=== PATIENT | female | born 1950 | race Caucasian/White ===

== ENCOUNTER 2020-06-22 13:57 | Outpatient (CLI) | payer MEDICARE, OTHER, SELFPAY ==
--- NOTE | 2020-06-22 14:15 | USCV_ITS ---
Maryuri Pearl Age: 69 Gender: F : 1950 Exam Date: 06/22/2020 14:56 Ordering Phys: Sabi Page MD ([email or web address]) Technologist: Hayder Vidal [place] [facility] [place]: POOR PULSES Risk Factors: None Previous Vascular Surgery: None RIGHT LEFT BP: 130.0 / 70.00 BP: 130.0/ 70.00 0 0 Waveform Velocity (cm/s) Velocity (cm/s) Waveform Biphasic 114.8 Iliac Prox 104.9 Biphasic Biphasic 122.2 Iliac Mid 117.3 Biphasic Biphasic 104.9 Iliac Distal 72.8 Biphasic Biphasic 104.9 ROOFING TILE SORTER 90.1 Biphasic Biphasic 104.9 SFA Prox 107.4 Biphasic Biphasic SFA Mid Biphasic 76.5 101.2 Biphasic 67.9 SFA Dist 104.9 Biphasic Biphasic 70.4 POP 69.1 Biphasic Biphasic 135.8 BEHAVIORAL HEALTH CLINICIAN 19.8 Monophasic Monophasic 65.0 DPA 90.1 Biphasic 1.1 MONICA 1.1 FINDINGS Normal resting ABIs bilaterally Intimal thickening and minimal plaques in the superficial femoral artery on bilaterally Normal resting ABIs bilaterally CONCLUSIONS No significant arterial obstruction in both lower extremities, based on the above findings Dr Sabi Page MD [facility] (Electronically Signed) Final Date: 22 June 2020 16:11 S
--- NOTE | 2020-06-22 14:17 | USCV_ITS ---
Maryuri Pearl Age: 69 Gender: F : 1950 Exam Date: 06/22/2020 14:43 Ordering Phys: Sabi Page MD ([email or web address]) Technologist: Hayder Vidal [place] [facility] [facility] [place]ication: SOB BP: 126 / 71 HR: 40 Rhythm: Sinus Technical Quality: Good MEASUREMENTS (Male / Female) Normal Values 2D ECHO LV Diastolic Diameter PLAX 3.4 cm 4.2 - 5.9 / 3.9 - 5.3 cm LV Systolic Diameter PLAX 2.4 cm IVS Diastolic Thickness 1.1 cm 0.6 - 1.0 / 0.6 - 0.9 cm IVS Systolic Thickness 1.2 cm LVPW Diastolic Thickness 0.9 cm 0.6 - 1.0 / 0.6 - 0.9 cm LVPW Systolic Thickness 1.3 cm LVOT Diameter 2.1 cm LV Ejection Fraction 2D Teich 57.3 % LV Ejection Fraction MOD 2C 78.2 % LV Ejection Fraction 2C AL 78.2 % LA Diameter 3.2 cm LA Width 2.9 cm LA Height 4.8 cm RA Width 3.6 cm RA Height 4.4 cm Aorta at Sinotubular Diameter 0.8 cm M-MODE LV Diastolic Diameter MM 4.4 cm 4.2 - 5.9 / 3.9 - 5.3 cm LV Systolic Diameter MM 2.6 cm LV Ejection Fraction MM Teich 71.6 % IVS Diastolic Thickness MM 0.8 cm 0.6 - 1.0 / 0.6 - 0.9 cm IVS Systolic Thickness MM 1.3 cm LVPW Diastolic Thickness MM 0.9 cm 0.6 - 1.0 / 0.6 - 0.9 cm LVPW Systolic Thickness MM 1.6 cm RV Diastolic Diameter MM 1.2 cm Aortic Annulus Diameter 3.1 cm LA Ao Ratio MM 1.1 MV E Point Septal Separation 0.8 cm DOPPLER AV Peak Velocity 173.0 cm/s LVOT Peak Velocity 89.0 cm/s AV Area Cont Eq vti 1.7 cm squared AV Area Cont Eq pk 1.7 cm squared MV Area PHT 2.8 cm squared Mitral E to A Ratio 0.8 MV E' Velocity 37.0 cm/s Mitral E to MV E' Ratio 6.9 Mitral E to LV E' Lateral Ratio 6.5 Mitral E to LV E' Septal Ratio 7.4 TR Peak Velocity 273.3 cm/s TR Peak Gradient 29.9 mmHg TV Peak E Velocity 78.0 cm/s Right Atrial Pressure 3.0 mmHg Pulmonary Artery Systolic Pressu 32.9 mmHg PV Peak Velocity 119.0 cm/s FINDINGS Left Ventricle Normal LV size with normal ejection fraction of 55%. Tethering motion of the septum possibly related to the conduction abnormality.Grade I/IV diastolic dysfunction (abnormal relaxation filling pattern), normal to mildly elevated filling pressures. Right Ventricle Normal right ventricular size and systolic function. Right Atrium The right atrium is normal in size. Left Atrium The left atrium is normal in size. Mitral Valve Thickened mitral valve. Trace mitral valve regurgitation. Aortic Valve Thickened aortic valve. Trace aortic valve regurgitation. Tricuspid Valve Mild tricuspid valve regurgitation. Estimated pulmonary artery peak systolic pressure 33 mmHg Pulmonic Valve Structurally normal pulmonic valve without significant stenosis. There is no pulmonic regurgitation. Pericardium Normal pericardium without effusion. Aorta Normal ascending aorta dimension. CONCLUSIONS Normal LV size with normal ejection fraction of 55%. Tethering motion of the septum possibly related to the conduction abnormality. Grade I/IV diastolic dysfunction (abnormal relaxation filling pattern), normal to mildly elevated filling pressures. Minimally thickened aortic and mitral valves. Trace of aortic and mitral regurgitation. Mild tricuspid valve regurgitation. There is no pericardial effusion. There are no intracardiac masses. Compared to the study from 03/26/2015, there may not be a significant change except for some evidence of diastolic dysfunction Dr Sabi Page MD [facility] (Electronically Signed) Final Date: 25 June 2020 08:55 S
== END 2020-06-22 13:58 | disposition home or self-care (01) ==
LOC: RAD 14:01
PROVIDERS: PCP Radiology Neuroradiology; Visit Provider Internal Medicine Cardiovascular Disease
DX: I44.1 Atrioventricular block, second degree (principal); I73.9 Peripheral vascular disease, unspecified; R06.02 Shortness of breath; I08.3 Combined rheumatic disorders of mitral, aortic and tricuspid valves
CPT/HCPCS: 93306; 93925

== ENCOUNTER → 2020-07-14 17:52 | Outpatient (BNVA) | payer MEDICARE, OTHER, SELFPAY | PROVIDERS: PCP Radiology Neuroradiology; Visit Provider Nurse Practitioner Family | DX: J02.9 Acute pharyngitis, unspecified (principal); Z20.828 Contact with and (suspected) exposure to other viral communicable diseases; Z11.59 Encounter for screening for other viral diseases; J30.9 Allergic rhinitis, unspecified; Z71.89 Other specified counseling | CPT/HCPCS: 87071; 87635; 87880 ==

== ENCOUNTER → 2021-04-24 12:59 | Outpatient (BNVA) | payer MEDICARE, OTHER, SELFPAY | PROVIDERS: PCP Family Medicine; Visit Provider Internal Medicine | DX: Z01.812 Encounter for preprocedural laboratory examination (principal); Z20.822 Contact with and (suspected) exposure to COVID-19 | CPT/HCPCS: 87635 ==

== ENCOUNTER 2021-05-10 08:53 | Day surgery (SDC) | payer MEDICARE, OTHER, SELFPAY ==
[2021-04-24 10:53] VITALS: BMI 41.0
--- NOTE | 2021-05-10 08:32 | P.ANESASSM_ITS ---
Pre-Anesthetic Assessment Pre-Anesthetic Assessment: Height/Weight: Height 1.52 m Weight 95.254 kg Proposed Procedure: Operation Date: 05/10/21 09:45 Proposed Procedures p EGD/colon 66057 A1911 47773 R19.14(Not Applicable) - Ayden Ann MD s Colonoscopy(Not Applicable) - Ayden Ann MD Was Beta Jose taken within 24 hours: N/A Was Clonidine taken within 24 hours: N/A Social: Social History: No alcohol and No tobacco Exam: Pre-Anes Outpt Exam: alert, oriented x 3, clear to auscultation bilaterally and regular rate & rhythm Airway: Submandibular: WNL Cervical ROM: WNL Pulmonary: Pulmonary: MARINO CV/HEM: CV/HEM: Arrythmia (Heart Block), HTN and PVD : Comments: Endometrial CA Hepatic: Hepatic: None reported GI: GI: None reported Metabolic: Metabolic: DM and Morbid obesity Neuropsych: Neuropsych: None reported Anesthetic Plan: ASA status: 3 Anesthesia: MAC PFSH Anesthesia PFSH: Medical History (Updated 01/21/21 @ 10:50 by Michael Ennis MD) Benign essential HTN Compression fracture of L1 lumbar vertebra (~03/2014) Diabetes mellitus MARINO (dyspnea on exertion) Endometrial cancer (~08/10/09) Stage IA, Grade 1, Endometrioid adenocarcinoma of the endometrium. Surgery performed on 08/10/2009 (cancer staging) No radiation or chemotherapy required. Obesity Peripheral vascular disease Second degree heart block Surgical History History of ankle surgery x3 (last one in 2011) History of breast biopsy (~1972) History of hysterectomy (08/10/09) Robotic Total laparoscopic hysterectomy with bilateral salpingo-oophorectomy and lymph node dissection. Diagnosis: Endometrial cancer. Performed by Dr. Trenton Cordero at [facility] in [place], [place]. History of hysteroscopy (07/31/09) Postmenopausal bleeding with endometrial polyp. Procedure performed by Dr. Michael Ennis at [facility] in [place], [place]. History of knee replacement (~10/09/14) Left Knee. Dr Jo in [place] at [facility]. Family History Grandmother Diabetes maternal Hypertension maternal Heart disease maternal Father Diabetes Mother Hypertension Thyroid disease Hypercholesteremia Heart disease Social History (Updated 01/23/21 @ 15:17 by Michael Ennis MD) Smoking and tobacco status: never smoked Alcohol intake: never Data Anesthesia Cardiac Studies: No Data to Display
--- NOTE | 2021-05-10 09:25 | P.HP_ITS ---
Same Day Surgery H&P Indication for Procedure/HPI DATE OF PROCEDURE: May 10, 2021 CHIEF COMPLAINT/INDICATIONFOR SURGICAL PROCEDURE: Screening PREOP DIAGNOSIS: Screen PLANNED PROCEDRUE: Operation Date: 05/10/21 09:45 Proposed Procedures p EGD/colon 19254 [id number] R19.14(Not Applicable) - Ayden Ann MD s Colonoscopy(Not Applicable) - Ayden Ann MD Medications/Allergies* Home Medications Medication Instructions Recorded Confirmed Type aspirin 81 mg tablet,delayed 81 mg PO DAILY 01/13/20 05/02/21 History release calcium lactate 650 mg tablet 648 mg PO DAILY tab 01/13/20 05/02/21 History cholecalciferol(vit D3) 1,000 1 tab PO DAILY tab 01/13/20 05/02/21 History unit-vit K2 90 mcg disintegrating tablet clopidogrel 75 mg tablet 75 mg PO DAILY 01/13/20 05/02/21 History hydrocodone 5 mg-acetaminophen 325 1 tab PO Q8H PRN 01/13/20 05/02/21 History mg tablet metformin 1,000 mg tablet 1,000 mg PO BID 01/13/20 05/02/21 History pregabalin 75 mg capsule 75 mg PO BID 01/13/20 05/02/21 History sennosides 8.6 mg tablet 8.6 mg PO BID PRN 01/13/20 05/02/21 History vit A 7,160 unit-vit C 113 mg-vit 1 tab PO BID tab 01/13/20 05/02/21 History E 100 osop-rwke-ybpfzt tablet benazepril 10 mg tablet 20 mg PO DAILY tab 01/21/21 05/02/21 History hydrochlorothiazide 25 mg tablet 50 mg PO DAILY tab 01/21/21 05/02/21 History trazodone 50 mg tablet 50 mg PO DAILY tab 01/21/21 05/02/21 History Allergies/Adverse Reactions Allergy/AdvReac Type Severity Reaction Status Date / Time bacitracin Allergy rash Verified 05/08/21 13:16 [From Triple Antibiotic] morphine Allergy jitters Verified 05/08/21 13:16 neomycin Allergy rash Verified 05/08/21 13:16 [From Triple Antibiotic] polymyxin B Allergy rash Verified 05/08/21 13:16 [From Triple Antibiotic] Sulfa (Sulfonamide Allergy rash Verified 05/08/21 13:16 Antibiotics) vancomycin Allergy rash Verified 05/08/21 13:16 Pertinent History/Comorbid Conditions* Medical History (Updated 01/21/21 @ 10:50 by Michael Ennis MD) Benign essential HTN Compression fracture of L1 lumbar vertebra (~03/2014) Diabetes mellitus MARINO (dyspnea on exertion) Endometrial cancer (~08/10/09) Stage IA, Grade 1, Endometrioid adenocarcinoma of the endometrium. Surgery performed on 08/10/2009 (cancer staging) No radiation or chemotherapy required. Obesity Peripheral vascular disease Second degree heart block Surgical History (Updated 01/17/20 @ 21:57 by Michael Ennis MD) History of ankle surgery x3 (last one in 2011) History of breast biopsy (~1972) History of hysterectomy (08/10/09) Robotic Total laparoscopic hysterectomy with bilateral salpingo-oophorectomy and lymph node dissection. Diagnosis: Endometrial cancer. Performed by Dr. Trenton Cordero at [facility] in [place], [place]. History of hysteroscopy (07/31/09) Postmenopausal bleeding with endometrial polyp. Procedure performed by Dr. Michael Ennis at [facility] in [place], [place]. History of knee replacement (~10/09/14) Left Knee. Dr [place] [facility]. Family History (Updated 01/13/20 @ 10:36 by Tatum Lunsford LPN) Diabetes Grandmother maternal Father Heart disease Grandmother maternal Mother Hypercholesteremia Mother Hypertension Grandmother maternal Mother Thyroid disease Mother Social History Smoking and tobacco status: never smoked Alcohol intake: never Pertinent Exam Findings alert, oriented x 3, clear to auscultation bilaterally, regular rate & rhythm, operative site marked and procedure specific exam findings Recommendations Surgery/Procedure today Coding Level of Care Code Acute Split Leather Mosser for Mague Bell
[2021-05-10 09:57] VITALS: BP 156/76; PULSE 50; RESP 16; TEMP 36.7; O2SAT 99
[2021-05-10] MEDS: sodium chloride 0.9% 1,000 ML 30 ML IV (10:29)
[2021-05-10 10:34] LABS: Glucose Point of Care 128 mg/dL (70-110)
[2021-05-10 11:06] VITALS: BP 115/57; PULSE 54; RESP 18; TEMP 36.3; O2SAT 94
--- NOTE | 2021-05-10 11:12 | ANE.PACU2 ---
Inpatient post-anesthesia follow up: Airway intact: Yes Vital signs: Temperature 98.1 F Pulse Rate 50 Respiratory Rate 16 Blood Pressure 156/76 Pulse Oximetry 99 Oxygen Delivery Me thod Room Air Oxygen Flow Rate Fraction of Inspir ed Oxygen Hydration adequate: Yes Nausea and vomiting: No Pain level: 1 Mental status: Baseline
[2021-05-10 11:19] VITALS: BP 143/81; PULSE 55; RESP 18; O2SAT 97
[2021-05-12 07:18] LABS: H. Pylori / CLO Test Negative
== END 2021-05-10 12:05 | disposition home or self-care (01) ==
PROVIDERS: PCP Family Medicine; Visit Provider Internal Medicine
PROC: 0DJ08ZZ Inspection of Upper Intestinal Tract, Via Natural or Artificial Opening Endoscopic (ICD-10-PCS; CPT 43235; principal; 2021-05-10 09:45)
PROC: 0DJD8ZZ Inspection of Lower Intestinal Tract, Via Natural or Artificial Opening Endoscopic (ICD-10-PCS; CPT 45378; 2021-05-10 09:45)
DX: Z12.11 Encounter for screening for malignant neoplasm of colon (principal); K29.71 Gastritis, unspecified, with bleeding; K25.9 Gastric ulcer, unspecified as acute or chronic, without hemorrhage or perforation; Z79.82 Long term (current) use of aspirin; I10 Essential (primary) hypertension; E11.9 Type 2 diabetes mellitus without complications; Z85.89 Personal history of malignant neoplasm of other organs and systems; E66.01 Morbid (severe) obesity due to excess calories; Z68.41 Body mass index [BMI] 40.0-44.9, adult; Z82.49 Family history of ischemic heart disease and other diseases of the circulatory system; Z83.3 Family history of diabetes mellitus
CPT/HCPCS: 36416; 43239; 45378; 82962; 87077; 96360; G0121; J2704; J7030

== ENCOUNTER → 2024-08-02 11:00 | Outpatient (BNVA) | payer MEDICARE, OTHER, SELFPAY | PROVIDERS: PCP Nurse Practitioner Family; Referring Provider Neurological Surgery; Visit Provider Specialist | DX: R25.1 Tremor, unspecified (principal); R03.0 Elevated blood-pressure reading, without diagnosis of hypertension; E11.40 Type 2 diabetes mellitus with diabetic neuropathy, unspecified; R27.8 Other lack of coordination; G31.84 Mild cognitive impairment of uncertain or unknown etiology | CPT/HCPCS: 99204; 99205 ==

== ENCOUNTER 2024-11-01 13:49 | Outpatient (CLI) | payer MEDICARE, OTHER, SELFPAY ==
--- NOTE | 2024-11-01 14:15 | MR_ITS ---
WS: [id number] MRA HEAD TECHNIQUE: Axial 3-D TOF images obtained with axial images and axial, sagittal, and coronal 2-D reformatted images. CLINICAL INFORMATION: R25.1 - Tremor, unspecified COMPARISON: None. FINDINGS: Distal vertebral arteries are patent. Basilar artery is patent. Normal vascularity to the MANAGER COMPENSATION territory bilaterally. Patent RIGHT posterior communicating artery. Both ICAs are patent at the skull base. Hypoplastic RIGHT A1 segment. Normal vascularity to the MEKHI territory. Normal vascularity to the MCA territories bilaterally. No evidence of proximal flow-limiting stenosis or aneurysm. MR/MR angio head wo con [id number] IMPRESSION: 1. No evidence of proximal flow-limiting stenosis or aneurysm. 2. Patent RIGHT posterior communicating artery. 3. Absent RIGHT A1 segment.
== END 2024-11-01 13:50 | disposition home or self-care (01) ==
PROVIDERS: Family Provider Nurse Practitioner Family; PCP Nurse Practitioner Family; Visit Provider Specialist
DX: R25.1 Tremor, unspecified (principal); I66.11 Occlusion and stenosis of right anterior cerebral artery
CPT/HCPCS: 70544; 95911

== ENCOUNTER → 2024-12-27 15:00 | Outpatient (BNVA) | payer MEDICARE, OTHER, SELFPAY | PROVIDERS: Family Provider Nurse Practitioner Family; PCP Nurse Practitioner Family; Visit Provider Specialist | DX: G31.84 Mild cognitive impairment of uncertain or unknown etiology (principal); G20.C Parkinsonism, unspecified; R27.8 Other lack of coordination; G56.03 Carpal tunnel syndrome, bilateral upper limbs; E11.40 Type 2 diabetes mellitus with diabetic neuropathy, unspecified | CPT/HCPCS: 99214 ==

== ENCOUNTER → 2025-02-23 13:53 | Outpatient (BNVA) | payer MEDICARE, OTHER, SELFPAY | PROVIDERS: Family Provider Nurse Practitioner Family; PCP Nurse Practitioner Family; Visit Provider Specialist | DX: G31.84 Mild cognitive impairment of uncertain or unknown etiology (principal); G20.C Parkinsonism, unspecified; R27.8 Other lack of coordination; G56.03 Carpal tunnel syndrome, bilateral upper limbs; E11.40 Type 2 diabetes mellitus with diabetic neuropathy, unspecified | CPT/HCPCS: 36415; 82542; 83520; 99214 ==

== ENCOUNTER 2025-02-28 14:30 | Outpatient (CLI) | payer MEDICARE, OTHER, SELFPAY ==
--- NOTE | 2025-02-28 14:30 | MR_ITS ---
WS: [id number] MRI BRAIN WITHOUT CONTRAST HISTORY: G31.84 - Mild cognitive impairment of uncertain or unknow... COMPARISON: None available. TECHNIQUE: Diffusion imaging, multiplanar T1, T2 and FLAIR imaging obtained. No evidence for acute infarct or hemorrhage. Sauceda-white matter differentiation is normal. Moderate bilateral symmetric volume loss. Moderate to severe small vessel ischemic changes throughout the white matter. Periventricular and subcortical white matter signal hyperintensities. No prior hemorrhage. Moderate cerebellar atrophy. Tiny lacunar infarct in the posterior LEFT cerebellum. Mild bilateral hippocampal atrophy. Ventricles and extra-axial spaces are prominent on the basis of atrophy. No inferior displacement of cerebellar tonsils. The sella turcica and pituitary gland are unremarkable. Dural venous sinuses and paimiut of Mcmillan demonstrate no abnormality on this unenhanced studies. Paranasal sinuses: Clear. Mastoid air cells: Small amount of fluid in the mastoid air cells, LEFT greater than RIGHT. Calvarium and scalp: Intact. MR/MR head wo con* [id number] IMPRESSION: 1. No acute infarct or hemorrhage. 2. Moderate symmetric volume loss with moderate to severe small vessel ischemi c disease. 3. Mild cerebellar atrophy with a small LEFT cerebellar lacunar infarct.
== END 2025-02-28 14:31 | disposition home or self-care (01) ==
LOC: RAD 14:31
PROVIDERS: Family Provider Nurse Practitioner Family; PCP Nurse Practitioner Family; Visit Provider Specialist
DX: G31.84 Mild cognitive impairment of uncertain or unknown etiology (principal); G20.C Parkinsonism, unspecified; R90.89 Other abnormal findings on diagnostic imaging of central nervous system
CPT/HCPCS: 70551

== ENCOUNTER → 2025-06-05 14:57 | Outpatient (BNVA) | payer MEDICARE, SELFPAY | PROVIDERS: Family Provider Nurse Practitioner Family; PCP Nurse Practitioner Family; Visit Provider Specialist | DX: G20.C Parkinsonism, unspecified (principal); G31.84 Mild cognitive impairment of uncertain or unknown etiology; M77.9 Enthesopathy, unspecified; G47.30 Sleep apnea, unspecified; R27.8 Other lack of coordination; G56.03 Carpal tunnel syndrome, bilateral upper limbs; E11.40 Type 2 diabetes mellitus with diabetic neuropathy, unspecified; G47.10 Hypersomnia, unspecified; G37.9 Demyelinating disease of central nervous system, unspecified | CPT/HCPCS: 99215 ==

== ENCOUNTER → 2025-06-21 13:28 | Outpatient (BNVA) | payer MEDICARE, SELFPAY | PROVIDERS: Family Provider Nurse Practitioner Family; PCP Radiology Neuroradiology; Visit Provider Podiatrist Foot & Ankle Surgery | DX: M79.671 Pain in right foot (principal); Q82.8 Other specified congenital malformations of skin | CPT/HCPCS: 17110; 73630; 99203 ==

== ENCOUNTER → 2025-07-17 13:43 | Outpatient (BNVA) | payer MEDICARE, SELFPAY | PROVIDERS: Family Provider Nurse Practitioner Family; PCP Radiology Neuroradiology; Visit Provider Podiatrist Foot & Ankle Surgery | DX: M79.671 Pain in right foot (principal); Q82.8 Other specified congenital malformations of skin; I73.9 Peripheral vascular disease, unspecified; E10.69 Type 1 diabetes mellitus with other specified complication; M21.41 Flat foot [pes planus] (acquired), right foot; M21.42 Flat foot [pes planus] (acquired), left foot; Z79.84 Long term (current) use of oral hypoglycemic drugs | CPT/HCPCS: 17110; 99213 ==